=== PATIENT | female | born 1970 | race Caucasian/White ===

== ENCOUNTER → 2020-02-20 16:39 | Outpatient (CLI) | payer OTHER, SELFPAY ==
--- NOTE | ~2020-02-20 | XR_ITS ---
EXAMINATION: XR chest 2V 02/20/2020 16:55 INDICATION: Dyspnea PROCEDURE: 2 view chest COMPARISON: 05/25/2017 FINDINGS: The lungs are clear. The cardiomediastinal silhouette is within normal limits. There are no pleural effusions. There is no pneumothorax suspected. IMPRESSION: 1: NO ACUTE CARDIOPULMONARY DISEASE. Reviewed, dictated and finalized at location A.
== END ==
PROVIDERS: PCP Family Medicine; Visit Provider Physician Assistant
DX: J22 Unspecified acute lower respiratory infection (principal)
CPT/HCPCS: 71046

== ENCOUNTER → 2021-09-22 07:13 | Outpatient (CLI) | payer BC, SELFPAY ==
--- NOTE | ~2021-09-22 | MM_ITS ---
EXAMINATION: MM screening [facility] BI w nesha HISTORY: Screening mammogram TECHNIQUE: Craniocaudal and mediolateral oblique 3-D tomosynthesis images were obtained and synthetic 2-D images were generated. CAD analysis was submitted and interpreted. COMPARISON: 10/01/2018, 06/20/2017, 11/12/2014 BREAST PARENCHYMAL COMPOSITION: The breasts are heterogeneously dense, which may obscure small masses . FINDINGS: There is no evidence of suspicious mass, calcification, or architectural distortion to sugg est malignancy in either breast. There has been no suspicious interval change. IMPRESSION: 1. No mammographic evidence of malignancy. 2. Recommend routine screening mammography in one year. BI-RADS Category 1: Negative Reviewed, dictated and finalized at location A. EDITOR SUPERVISOR
== END ==
PROVIDERS: PCP Family Medicine; Visit Provider Physician Assistant
DX: Z12.31 Encounter for screening mammogram for malignant neoplasm of breast (principal)
CPT/HCPCS: 77063; 77067

== ENCOUNTER → 2021-12-14 09:45 | Outpatient (CLI) | payer BC, SELFPAY ==
--- NOTE | ~2021-12-14 | XR_ITS ---
EXAMINATION: XR foot LT min 3V DATE: 12/14/2021 10:08 INDICATION: Pain at the left great toe TECHNIQUE: Dorsoplantar, two oblique and lateral views of the left foot were obtained. COMPARISON: None. FINDINGS: Alignment is normal. No fracture. Mild to moderate osteoarthritis at the first metatarsophalangeal annita int. Mild osteoarthritis at a few of the tarsal metatarsal and interphalangeal joints. Moderate-sized plantar calcaneal spur. Soft tissues are unremarkable. IMPRESSION: 1. 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 Reviewed, dictated and finalized at location B. IMPRESSION: 1. 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
== END ==
PROVIDERS: PCP Family Medicine; Visit Provider Physician Assistant
DX: M19.072 Primary osteoarthritis, left ankle and foot (principal)
CPT/HCPCS: 73630

== ENCOUNTER → 2023-01-04 07:04 | Outpatient (CLI) | payer BC, SELFPAY ==
--- NOTE | ~2023-01-04 | MM_ITS ---
EXAMINATION: MM screening [facility] BI w nesha HISTORY: Screening mammogram TECHNIQUE: Craniocaudal and mediolateral oblique 3-D tomosynthesis images were obtained and synthetic 2-D images were generated. CAD analysis was submitted and interpreted. COMPARISON: 09/22/2021, 10/01/2018, 06/20/2017 bilateral screening mammogram examinations BREAST PARENCHYMAL COMPOSITION: The breasts are heterogeneously dense, which may obscure small masses . FINDINGS: There is no evidence of suspicious mass, calcification, or architectural distortion to sugg est malignancy in either breast. There has been no suspicious interval change. IMPRESSION: 1. No mammographic evidence of malignancy. 2. Recommend routine screening mammography in one year. BI-RADS Category 1: Negative Reviewed, dictated and finalized at location A.
== END ==
PROVIDERS: PCP Family Medicine; Visit Provider Family Medicine
DX: Z12.31 Encounter for screening mammogram for malignant neoplasm of breast (principal)
CPT/HCPCS: 77063; 77067

== ENCOUNTER 2024-07-25 00:15 | Day surgery (SDC) | payer BC, SELFPAY ==
[2024-07-14 08:14] VITALS: BMI 24.1
--- NOTE | 2024-07-14 08:24 | PC.NURSE ---
Addendum entered by Ilia Meadows RN 07/14/24 08:36: Also stop Berberine on 07-22-2024 Original Note: Report to the Outpatient Waiting Room, entrance under the green pavilion located off [facility], at time _0730_ on date _[id number]_. Planned Procedure Time: _0930_.? Time changes happen often and if your time is changed the preop area will call you the afternoon before. - You and your visitor will be asked to self-screen and do not enter if you have any COVID symptoms. Please call surgeon if you need to reschedule. - A mask is optional within the hospital at this time. Patients may have clear liquids (water, carbonated beverages, clear teas, apple juice) until 3 hours prior to surgery with a maximum of 20 ounces. - No food from midnight until time of surgery and no smoking. This includes no chewing gum, candy or mints. Take only the following medications with a SIP of water on the morning of surgery: ___Lorazepam if needed. DO NOT STOP ANY OF YOUR OTHER PRESCRIPTION MEDICATIONS PRIOR TO SURGERY EXCEPT THE FOLLOWING Medications to discontinue per physician ____Ferrous gluconate Date to take last pxjp____[phone]____ Please no make-up, nail georgian, hairspray, perfume, deodorant, or body powder the day of surgery.? No jewelry (including any body piercings) or valuables the day of surgery, leave them at home.? Please take a shower or bath the night before, or the morning of, surgery with an antibacterial soap.? Wear comfortable, loose fitting clothing.? - Jewelry must be removed prior to entering the operating room.? Rings and piercings that are not removed may be cut off. - The hospital will not accept responsibility for valuables.? - Please leave all valuables, including medications, at home the day of surgery. If you are going home after surgery, a licensed driver operator must drive you home.? - NO public transportation without another adult if you receive anesthesia. - We recommend that an adult stay with you for 24 hours following discharge. - We also recommend that you do not drive, make important decision, drink alcoholic beverages, or take any drugs that were not prescribed by your health care provider for at least 24 hours after your discharge time. Follow any additional instructions given to you from your surgeon. Telephone instructions given to __Maci__and asked if any additional questions and then verbalized understanding. Patient advised to call surgeon office or pre surgery nurse liaison [phone] if any additional questions.
--- NOTE | 2024-07-24 14:30 | P.PNAN_ITS ---
Anes - Initial Pre Proc Eval Procedure: Operation Date: 07/25/24 09:30 Proposed Procedures p Arthrodesis of First Metatarsal Phalangeal Joint Left Foot - Dawson Mendiola Jr., DPM Date/Time: 07/24/24 14:30 Surgeon: Dawson Mendiola Jr., DPM Pre Op Diagnosis: Arthritis 1st MPJ Left Foot Patient Data Age: 54 Gender: F Height: 1.7 m Weight: 70 kg Allergies Allergy/AdvReac Type Severity Reaction Status Date / Time morphine Allergy Unknown Itching Verified 07/25/24 07:49 Home Medications ?Medication ?Instructions ?Recorded ?Confirmed ?Type ferrous gluconate 240 mg (27 mg 240 mg PO DAILY 10/29/23 07/25/24 History iron) tablet (Ferate) lorazepam 1 mg tablet (Ativan) 1 mg PO DAILY PRN anxiety #30 tabs 10/29/23 07/17/24 Rx berberine chloride 500 mg capsule 1,000 mg PO DAILY 07/14/24 07/17/24 History cefdinir 300 mg capsule 300 mg PO DAILY #30 caps 07/17/24 07/17/24 Rx Patient hx anesthesia problems: none Family hx anesthesia problems: none Results Review: All pre-operative results and documents have been reviewed as part of the pre- operative evaluation. [facility] Past Medical History Medical History (Updated 07/17/24 @ 08:49 by Hali Blackwell MD) Endometriosis Pulmonary embolism JAN 2005 Acute non-recurrent sinusitis Acute pain of right knee Anxiety Chest tightness Erythema multiforme Muscle strain Other fatigue Ulcerative colitis, unspecified with other complication Surgical History Surgical History (Updated 07/24/24 @ 14:30 by Kale Mokn DO) S/P IVC filter 2009 History of vulvar vestibulectomy History of appendectomy H/O colectomy November & SEP 2010 (fistula repair) Family History Family History Mother Hypertension Father Family history of Alzheimer's disease Sibling Hypertension Social History Social History Smoking status: Former smoker Second hand tobacco smoke exposure: No Smoking end date: 07/23/99 Alcohol intake: never Substance use: never Substance use type: does not use Anes - Eval Final PreProcedure Day of Procedure 07/24/24 14:30 Patient weight: normal Heart: regular rate and rhythm Lungs: clear to auscultation Airway: Mallampati scale class II Neurological: alert and oriented Last oral intake: >/= 8 hours ASA classification: III Emergent: no Anesthetic plan: proceed Anesthesia type and monitoring: general LMA and standard monitoring Results Review: All pre-operative results and documents have been reviewed as part of the pre- operative evaluation. Informed Consent: The patient's anesthetic plan and its attendant risks and benefits were discussed with the patient/family/POA. Questions were solicited and answers provided to the satisfaction of the patient/family/POA.
[2024-07-25] VITALS (8 sets, daily range): BP systolic 104–116; BP diastolic 66–78; PULSE 50–74; RESP 12–16; TEMP 36.1–36.6; O2SAT 99–100
--- NOTE | ~2024-07-25 | XR_ITS ---
EXAMINATION: XR surgery orthopedic DATE: 07/25/2024 09:59 INDICATION: Osteoarthritis of left first metatarsophalangeal joint. TECHNIQUE: 2 intraoperative fluoroscopic views of left foot were obtained. I was not present. Fluoros copy exposure time was 7 seconds. COMPARISON: Left foot radiographs 12/14/2021 FINDINGS: There are changes of arthrodesis of first metatarsophalangeal joint with dorsal plate and m ultiple screws. No fracture. IMPRESSION: 1. Arthrodesis of left first metatarsophalangeal joint. Reviewed, dictated and finalized at location A. QUALITY TECHNICIAN
--- NOTE | 2024-07-25 07:10 | WPDHPUPDATE1 ---
History and Physical Update Update Date/Time: 07/25/24 07:10 History and Physical has been reviewed, including an updated exam of the patient. There are NO changes in the patient's condition. Risks, benefits, and alternatives have been discussed and questions answered. Patient agrees to proceed with procedure.
[2024-07-25 07:59] LABS: BEDSIDEPREGUCG Negative (Negative)
[2024-07-25] MEDS: LACTATED RINGERS 1,000 ML 30 ML IV CONT ×2 (08:24→11:08)
[2024-07-25] MEDS: ceFAZolin 2 GM/D5W 50 ML 2 GM/50 ML BAG IVPB (09:12)
[2024-07-25] MEDS: LIDOCAINE 2% LOCAL INJ 20 ML VIAL 10 ML INFILTRATE (09:25)
--- NOTE | 2024-07-25 10:20 | W.PM.PROC2 ---
Procedure Note - Detailed Date of Procedure 07/25/24 Pre-op Diagnosis Arthritis 1st Metatarsal Phalangeal Joint Left Foot Post-op Diagnosis Same Procedure Performed 1. Arthrodesis of the 1st Metatarsal Phalangeal Joint Left Foot Surgeon Dawson Mendiola Jr., DPM Anesthesia General and Local Indications Painful left great toe joint. Findings Severe joint degeneration to the articular surface of the first metatarsal phalangeal joint left foot Description of Procedure PROCEDURE IN DETAIL: Under mild sedation, the patient was brought into the operating room, placed on the operating table in supine position. A pneumatic ankle tourniquet was placed about the patient's ipsilateral ankle. Following general anesthesia and a popliteal fossa block, the foot was then scrubbed, prepped, and draped in the usual aseptic manner. An Esmarch bandage was then used to exsanguinate the patient's foot and the pneumatic ankle tourniquet was then inflated. Surgery began in the following manner: Attention was directed to the dorsal medial aspect of the 1st metatarsophalangeal joint where there was a moderate subcutaneous prominence was noted. The incision was made starting along the central shaft of the 1st metatarsal and extending just proximal to the interphalangeal joint of the hallux. The incision was continued deep down through the subcutaneous tissues using sharp and blunt dissection. All bleeders were cauterized as necessary. At this point, the dissection was continued down to the level of the periosteum and capsular structures overlying the 1st metatarsophalangeal joint. A full length periosteum and capsular incision was made just medial to the extensor hallucis longus tendon. The periosteum and capsular structures were freed from the base of the proximal phalanx as well as the distal 1st metatarsal. At this point, the 1st metatarsophalangeal joint was identified. There was loss of articular cartilage to the head of the 1st metatarsal as well as the base of the proximal phalanx worse centrally and medially. There was significant broadening and hypertrophy of the 1st metatarsophalangeal joint. Utilizing a sagittal bone saw, the hypertrophied 1st metatarsal was resected dorsally, medially, and laterally. A power bur was used to make sure that there were no rough edges and also to further debride the hypertrophic 1st metatarsal. Next, a rongeur was used to resect the hypertrophic base of the proximal phalanx. At this point, the reamer system for the Maxforce plaste system was used to denude the degenerative cartilage from the head of the 1st metatarsal as well as the base of the proximal phalanx. The cartilage and subchondral bone were fully debrided utilizing the reamer system until healthy bleeding bone was noted. Next, a 2-0 drill bit was used to further fenestrate the head of the 1st metatarsal as well as the base of the proximal phalanx in order to allow fusion across the 1st metatarsophalangeal joint. Next, a guide wire for a 3.0 headless Arthrex compression screw was driven from the medial aspect of the base of the proximal phalanx into the head of the 1st metatarsal in order to serve as temporary fixation, next the cannulated screw was driven and provided excellent compression. Next A large steel plate was used to make sure that the hallux was in a rectus position both in the sagittal plane as well as the frontal plane. Excellent position of the hallux was noted. Next, a Maxforce plate was placed atop the 1st metatarsophalangeal joint held in position with [place] wires. Utilizing standard principles and techniques, the distal drill holes were drilled and three 3.0 mm mm fully-threaded locking screws were driven from dorsal to plantar holding the distal aspect of the plate intact. At this point, the Maxforce compression system was utilized from dorsal distal to proximal plantar across the 1st metatarsophalangeal joint with excellent compression noted. Next, a 3.0mm non locking screw was used to further compress the joint along the oblong dynamic compression screw slot. Next, the remaining 2 proximal drill holes were drilled from dorsal to plantar across and two 3.0 mm locking screws were driven form dorsal to plantar. The wound site was then flushed with copious amounts of sterile saline. Fluoroscopy was used to make sure that the plate was appropriately aligned and oriented and also to make sure that the screws were of appropriate length and orientation. Excellent position of the 1st metatarsophalangeal joint was visualized in all planes. Next, the periosteum and capsular structures were reapproximated with 3-0 Vicryl. Next, the subcutaneous structures were reapproximated with 4-0 Vicryl. Next, the skin was reapproximated and coapted utilizing 4-0 Monocryl in running subcuticular suture fashion technique. Upon completion of the procedure, the incision was dressed with Steri-Strips, Adaptic, 4x4s, Kerlix, and Coban. The pneumatic ankle tourniquet was then deflated and a prompt hyperemic response was noted to all digits of the foot. A posterior splint was then applied to the affected lower extremity. It is important to note that Dr. Mendiola was present throughout the procedure. The patient did very well with the procedure and the anesthesia. The patient was transferred to the recovery room with vital signs stable and vascular status intact to all toes of the foot. Following a period of postoperative monitoring, the patient will be discharged home on the following written and oral postoperative instructions: 1. Keep the dressing clean, dry, and intact. 2. The patient to be strictly nonweightbearing with a knee scooter or crutches. 3. The patient should ice and elevate the foot when at rest. 4. The patient should contact Dr. Mendiola for all postop care and if any problems should arise. 5. Prescriptions were written for Percocet 5/325, dispensed 40 to be taken 1 p.o. q.4-6 hours as needed for severe pain. Furthermore, the patient should also take Xarelto 10 mg to be taken 1 p.o. daily starting 24 hours after surgery to prevent DVT for 14 days followed by one 325 mg aspirin until walking is re-initiated. Implants Arthrex Maxforce Plate with five 3.0 Locking Screws and one 3.0mm Non Locking Screw Estimated Blood Loss 1 Drains No Packing No Pathology None sent Complications No immediate complications Condition Stable Disposition Same day
[2024-07-25] MEDS: fentaNYL CITRATE INJ (*CRX) 100 MCG/2 ML VIAL 25 MCG IV PUSH ×4 (10:42→10:58)
[2024-07-25] MEDS: ONDANSETRON INJ 4 MG/2 ML VIAL IV PUSH (11:42)
== END 2024-07-25 12:15 | disposition home or self-care (01) ==
PROVIDERS: PCP Family Medicine; Visit Provider Podiatrist Foot & Ankle Surgery
PROC: (CPT 28750; principal; 2024-07-25 09:30)
DX: M19.072 Primary osteoarthritis, left ankle and foot (principal); M25.775 Osteophyte, left foot; M20.22 Hallux rigidus, left foot; D64.9 Anemia, unspecified; F41.9 Anxiety disorder, unspecified; N80.9 Endometriosis, unspecified; Z98.890 Other specified postprocedural states; Z90.49 Acquired absence of other specified parts of digestive tract; Z87.891 Personal history of nicotine dependence; Z86.711 Personal history of pulmonary embolism
CPT/HCPCS: 28750; 99199; C1713; C1769; J0690; J1100; J2003; J2405; J2704; J3010; J7120

== ENCOUNTER 2024-11-07 13:27 | Outpatient (CLI) | payer BC, SELFPAY ==
--- NOTE | ~2024-11-07 | MM_ITS ---
EXAMINATION: MM screening [facility] BI w nesha HISTORY: Screening TECHNIQUE: Craniocaudal and mediolateral oblique 3-D tomosynthesis images were obtained and synthetic 2-D images were generated. CAD analysis was submitted and interpreted. COMPARISON: Comparison to multiple prior studies sequentially, with oldest reviewed study dated 05/24. BREAST PARENCHYMAL COMPOSITION: Dense: The breasts are heterogeneously dense, which may obscure small masses FINDINGS: There is no evidence of suspicious mass, calcification, or architectural distortion to sugg est malignancy in either breast. There has been no suspicious interval change. IMPRESSION: 1. No mammographic evidence of malignancy. 2. Recommend routine screening mammography in one year. BI-RADS Category 1: Negative Reviewed, dictated and finalized at location B.
== END 2024-11-07 13:28 | disposition home or self-care (01) ==
LOC: MICIMG 13:27
PROVIDERS: PCP Family Medicine; Visit Provider Physician Assistant
DX: Z12.31 Encounter for screening mammogram for malignant neoplasm of breast (principal)
CPT/HCPCS: 77063; 77067